=== PATIENT | male | born 1955 | race Caucasian/White ===

== ENCOUNTER 2016-05-26 22:06 | Emergency (ER) | payer SELFPAY ==
[2016-05-26] MEDS ORDERED: NORMAL SALINE 1000 ML 1,000 ML IV ONE (22:11)
[2016-05-26 22:49] LABS: ABSOLUTE BASOPHILS # (AUTO) 0.1 10^3/uL (0.0-0.2); ABSOLUTE LYMPHOCYTES (AUTO) 1.1 10^3/uL (0.5-4.7); ABSOLUTE MONOCYTES (AUTO) 1.3 10^3/uL (0.1-1.4); ABSOLUTE NEUT (AUTO) 9.3 10^3/uL (1.7-8.2); BASOPHILS % (AUTO) 0.5 % (0-2); EOSINOPHILS % (AUTO) 0.2 % (0-6); HEMATOCRIT 43.1 % (37.9-51.0); HEMOGLOBIN 14.4 g/dL (13.5-17.0); HGB HCT DIFFERENCE 0.1; LYMPHOCYTES % (AUTO) 9.1 % (13-45); MEAN CORPUSCULAR HEMOGLOBIN 29.8 pg (27.0-33.4); MEAN CORPUSCULAR HGB CONC 33.3 g/dL (32.0-36.0); MEAN CORPUSCULAR VOLUME 89 fl (80-97); MONOCYTES % (AUTO) 10.8 % (3-13); RED BLOOD COUNT 4.82 10^6/uL (4.35-5.55); RED CELL DISTRIBUTION WIDTH 13.6 % (11.5-14.0); SEGMENTED NEUTROPHILS % (AUTO) 79.4 % (42-78); WHITE BLOOD COUNT 11.7 10^3/uL (4.0-10.5)
[2016-05-26 22:56] LABS: PROTHROMBIN TIME 15.9 SEC (11.4-15.4)
[2016-05-26 23:05] LABS: ALANINE AMINOTRANSFERASE 43 U/L (21-72); ALBUMIN 3.4 g/dL (3.5-5.0); ALKALINE PHOSPHATASE 62 U/L (38-126); ANION GAP 12 (5-19); ASPARTATE AMINO TRANSFERASE 28 U/L (17-59); BILIRUBIN,TOTAL 0.9 mg/dL (0.2-1.3); BLOOD UREA NITROGEN 18 mg/dL (7-20); CALCIUM 8.7 mg/dL (8.4-10.2); CARBON DIOXIDE 20 mmol/L (22-30); CHLORIDE 108 mmol/L (98-107); CREATININE RESULT 1.05 mg/dL (0.52-1.25); GLUCOSE 140 mg/dL (75-110); POTASSIUM 3.8 mmol/L (3.6-5.0); SODIUM 140.1 mmol/L (137-145); TOTAL PROTEIN 6.7 g/dL (6.3-8.2)
[2016-05-26] MEDS ORDERED: AZITHROMYCIN 250 MG TABLET PO ONE (23:35)
[2016-05-26] MEDS ORDERED: CEFTRIAXONE 1 GM/D5W RTU 50 ML IV ONE (23:35)
--- NOTE | 2016-05-27 00:24 | ER Document Report ---
ED General - General Stated Complaint: SHORTNESS OF BREATH Notes: Patient is a 60-year-old male without past medical history who presents with 3 days of cough, fever, and shortness of breath. Denies a history of similar symptoms in the past. States his symptoms are unchanged by exertion. Nothing improves or worsens his cough or shortness of breath. He has not seen a primary care physician regarding today's concerns. Denies a history of smoking , asthma or COPD. Denies any vomiting, diarrhea, headache, neck pain, altered mental status. He has been trying to treat his fever at home with Tylenol. He did not receive an influenza vaccination this year. - HPI Onset: Other - 2 days ago Onset/Duration: Gradual Quality of pain: No pain Severity: None Pain Level: Denies Associated symptoms: Shortness of breath Exacerbated by: Denies Relieved by: Denies Similar symptoms previously: No Recently seen / treated by doctor: No - Related Data Allergies/Adverse Reactions: No Known Allergies Allergy (Verified 08/30/12 16:14) Past Medical History - General Information source: Patient - Social History Smoking Status: Never Smoker Frequency of alcohol use: None Drug Abuse: None Lives with: Spouse/Significant other Family History: Reviewed & Not Pertinent - Immunizations Hx Diphtheria, Pertussis, Tetanus Vaccination: Yes Review of Systems - Review of Systems Notes: Constitutional: Positive for fever. HENT: Negative for sore throat. Eyes: Negative for visual changes. Cardiovascular: Negative for chest pain. Respiratory: Positive for shortness of breath, and cough Gastrointestinal: Negative for abdominal pain, vomiting or diarrhea. Genitourinary: Negative for dysuria. Musculoskeletal: Negative for back pain. Skin: Negative for rash. Neurological: Negative for headaches, weakness or numbness. 10 point ROS negative except as marked above and in HPI. Physical Exam - Vital signs Interpretation: Tachycardic, Febrile Notes: PHYSICAL EXAMINATION: GENERAL: Mildly ill in appearance but in no acute distress. HEAD: Atraumatic, normocephalic. EYES: Pupils equal round and reactive to light, extraocular movements intact, sclera anicteric, conjunctiva are normal. ENT: nares patent, oropharynx clear without exudates. Moderately dry mucous membranes. NECK: Normal range of motion, supple without lymphadenopathy LUNGS: Mildly diminished breath sounds at the right low base. Air movement appropriately otherwise bilaterally. No wheezing. HEART: Regular tachycardia without murmurs ABDOMEN: Soft, nontender, normoactive bowel sounds. No guarding, no rebound. No masses appreciated. EXTREMITIES: Normal range of motion, no pitting or edema. No cyanosis. NEUROLOGICAL: No focal neurological deficits. Moves all extremities spontaneously and on command. PSYCH: Normal mood, normal affect. SKIN: Warm, Dry, normal turgor, no rashes or lesions noted. Course - Re-evaluation Re-evalutation: 05/27/16 04:41 Patient presents with signs and symptoms as well as vitals most consistent with acute pneumonia. Although this is not visualized on chest x-ray, based on vitals and assessment as well as negative influenza suspect that patient likely has a community-acquired pneumonia. He has been treated with ceftriaxone and azithromycin here in the emergency department. Remainder of his labs show mild leukocytosis but are otherwise unremarkable. Patient was mildly hypoxemic with an oxygen saturation of 93% which he was able to maintain with ambulation around the emergency department. I offered admission to the patient given his overall mildly ill appearance as well as his hypoxemia at rest but he declined stating he would return should he have any worsening symptoms. I do not suspect an alternative source to his fever given the absence of any abdominal complaints, dysuria, or evidence of a cellulitis. At this time will discharge with return precautions and follow-up recommendations. Verbal discharge instructions given a the bedside and opportunity for questions given. Medication warnings reviewed. Patient is in agreement with this plan and has verbalized understanding of return precautions and the need for primary care follow-up in the next 24-72 hours. - Laboratory Result Diagrams: 05/26/16 22:30 05/26/16 22:30 Laboratory results interpreted by me: 05/26/16 05/26/16 05/26/16 22:30 22:30 22:30 WBC 11.7 H Seg Neutrophils % 79.4 H Lymphocytes % 9.1 L Absolute Neutrophils 9.3 H PT 15.9 H Chloride 108 H Carbon Dioxide 20 L Glucose 140 H Albumin 3.4 L - Diagnostic Test Radiology reviewed: Image reviewed, Reports reviewed Radiology results interpreted by me: 05/27/16 04:42 Chest x-ray: No acute infiltrate - EKG Interpretation by Me Additional EKG results interpreted by me: 05/27/16 04:43 Sinus rhythm. Rate 70. No ST elevations or depressions. QTC 454. Discharge - Discharge Clinical Impression: Pneumonia Qualifiers: Pneumonia type: due to unspecified organism Laterality: unspecified laterality Lung location: unspecified part of lung Qualified Code(s): J18.9 - Pneumonia, unspecified organism Sepsis Qualifiers: Sepsis type: sepsis due to unspecified organism Qualified Code(s): A41.9 - Sepsis, unspecified organism Condition: Fair Disposition: HOME, SELF-CARE Additional Instructions: You were seen today for a fever and shortness of breath. Your oxygen levels were also mildly low. You have requested to go home today instead of coming into the hospital. Please take the antibiotics as directed. Follow-up with your primary doctor in the next 1-2 days. Return immediately to the ED if you have worsening shortness of breath, become confused, pass out, begin having worsening coughing, cough blood, or have any other symptoms that are concerning to you. Prescriptions: Azithromycin 250 mg PO DAILY #4 tablet
--- NOTE | 2016-05-27 08:01 | EKG REPORT ---
SEVERITY:- NORMAL ECG - SINUS RHYTHM ARTIFACTS VS FUSION BEATS, REC REPEAT EKG : Confirmed by: Camille Carlson 27-May-2016 08:00:28
[2016-05-27 09:46] VITALS: BP 141/85
== END 2016-05-27 01:00 | disposition home or self-care (01) ==
LOC: ER 22:06
DX: J18.9 Pneumonia, unspecified organism (principal); A41.9 Sepsis, unspecified organism; R06.02 Shortness of breath; R05 Cough; R50.9 Fever, unspecified; R09.02 Hypoxemia
CPT/HCPCS: 93005; 99285; 96361; 96374; 36415; 87040; 82962; 85025; 85610; 80053; 83605; 87804; 71010; 93010; J7030; J0696

== ENCOUNTER 2017-06-22 07:26 | Emergency (ER) | payer SELFPAY ==
[2017-06-22 07:36] VITALS: BP 127/77
[2017-06-22] MEDS ORDERED: ALBUTEROL SULFATE HFA (90 MCG/PUFF) 8 GM MDI (1 MDI/ER DISP) IH ONE (08:32)
--- NOTE | 2017-06-22 08:37 | ER Document Report ---
ED General - General Chief Complaint: Flu Symptoms Stated Complaint: FLU SYMPTOMS Time Seen by Provider: 06/22/17 08:09 TRAVEL OUTSIDE OF THE [place] IN LAST 30 DAYS: No - HPI Patient complains to provider of: Flulike symptoms Notes: Patient coming in for flulike symptoms feeling weak cough diffuse myalgias. Patient states did not receive flu shot this year. Patient denies any recent travel patient denies any fever states chills at home. Patient resting company upon my evaluation. - Related Data Allergies/Adverse Reactions: No Known Allergies Allergy (Verified 06/22/17 07:26) Past Medical History - Social History Smoking Status: Never Smoker Frequency of alcohol use: None Drug Abuse: None Family History: Reviewed & Not Pertinent Patient has suicidal ideation: No Patient has homicidal ideation: No Neurological Medical History: Reports: Hx Migraine - no meds Renal/ Medical History: Denies: Hx Peritoneal Dialysis - Immunizations Hx Diphtheria, Pertussis, Tetanus Vaccination: Yes Review of Systems - Review of Systems Constitutional: Other - Myalgias cough flulike symptoms EENT: No symptoms reported Cardiovascular: No symptoms reported Respiratory: No symptoms reported Gastrointestinal: No symptoms reported Genitourinary: No symptoms reported Male Genitourinary: No symptoms reported Musculoskeletal: No symptoms reported Skin: No symptoms reported Hematologic/Lymphatic: No symptoms reported Neurological/Psychological: No symptoms reported -: Yes All other systems reviewed and negative Physical Exam - Vital signs Vitals: Temp Pulse Resp BP Pulse Ox 98.6 F 97 16 127/77 H 95 06/22/17 07:35 06/22/17 07:35 06/22/17 07:35 06/22/17 07:35 06/22/17 07:35 Interpretation: Normal - General General appearance: Appears well, Alert - HEENT Head: Normocephalic, Atraumatic Eyes: Normal Pupils: PERRL - Respiratory Respiratory status: No respiratory distress Chest status: Nontender Breath sounds: Normal Chest palpation: Normal - Cardiovascular Rhythm: Regular Heart sounds: Normal auscultation Murmur: No - Abdominal Inspection: Normal Distension: No distension Bowel sounds: Normal Tenderness: Nontender Organomegaly: No organomegaly - Back Back: Normal, Nontender - Extremities General upper extremity: Normal inspection, Nontender, Normal color, Normal ROM , Normal temperature General lower extremity: Normal inspection, Nontender, Normal color, Normal ROM , Normal temperature, Normal weight bearing. No: Mohan's sign - Neurological Neuro grossly intact: Yes Cognition: Normal Orientation: AAOx4 [place] Coma Scale Eye Opening: Spontaneous [place] Coma Scale Verbal: Oriented Jesse Coma Scale Motor: Obeys Commands Jesse Coma Scale Total: 15 Speech: Normal Motor strength normal: LUE, RUE, LLE, RLE Sensory: Normal - Psychological Associated symptoms: Normal affect, Normal mood - Skin Skin Temperature: Warm Skin Moisture: Dry Skin Color: Normal Course - Re-evaluation Re-evalutation: 06/22/17 15:46 Patient presents with flulike symptoms however examination otherwise benign. Patient will be discharged home. - Vital Signs Vital signs: Temp Pulse Resp BP Pulse Ox 98.6 F 97 16 127/77 H 95 06/22/17 07:35 06/22/17 07:35 06/22/17 07:35 06/22/17 07:35 06/22/17 07:35 Discharge - Discharge Clinical Impression: Flu-like symptoms Disposition: HOME, SELF-CARE Instructions: Acetaminophen, Use of [id number]-[id number] Ibuprofen ([facility]), Influenza ([facility]) [id number] Additional Instructions: Your symptoms today are consistent with a viral-like illness or influenza. Please continue take Tylenol Motrin for pain and fever. Use inhaler that we gave you here in ER 2 puffs every 4 hours for any shortness of breath or wheezing. Unfortunately viruses will have the run of course there is no cure for them. Please make sure you are drinking plenty water to stay hydrated. Return to ER symptoms worsen or follow-up with your primary care provider. Forms: Return to Work
== END 2017-06-22 08:56 | disposition home or self-care (01) ==
LOC: ER 07:26
DX: R53.1 Weakness (principal); R05 Cough; M79.1 Myalgia
CPT/HCPCS: 99283; J3490

== ENCOUNTER 2019-02-13 12:13 | Emergency (ER) | payer SELFPAY ==
--- NOTE | 2019-02-13 12:38 | ER Document Report ---
ED Medical Screen (RME) - General Stated Complaint: URINARY PROBLEMS Time Seen by Provider: 02/13/19 12:28 Mode of Arrival: Ambulatory Information source: Patient Notes: Patient presents emergency department with reports that he is unable to void. He did attempt to give us a urine sample and very little urine output. He reports he still has to go. Reports he has had the symptoms for a while but last night they are intense he. He reports he is trying to void at least 20 times. Denies pain. Denies fever vomiting diarrhea. Denies past medical history. Reports he does not like to see doctors. I have greeted and performed a rapid initial assessment of this patient. A comprehensive ED assessment and evaluation of the patient, analysis of test results and completion of the medical decision making process will be conducted by additional ED providers. Dictation of this chart was performed using voice recognition software; therefore, there may be some unintended grammatical errors. TRAVEL OUTSIDE OF THE [place] IN LAST 30 DAYS: No - Related Data Allergies/Adverse Reactions: No Known Allergies Allergy (Verified 02/13/19 12:33) Past Medical History Neurological Medical History: Reports: Hx Migraine - no meds Renal/ Medical History: Denies: Hx Peritoneal Dialysis - Immunizations Hx Diphtheria, Pertussis, Tetanus Vaccination: Yes Physical Exam - Vital signs Vitals: Temp Pulse Resp BP Pulse Ox 97.5 F 75 18 148/76 H 97 02/13/19 12:17 02/13/19 12:17 02/13/19 12:17 02/13/19 12:17 02/13/19 12:17 Course - Vital Signs Vital signs: Temp Pulse Resp BP Pulse Ox 97.5 F 75 18 148/76 H 97 02/13/19 12:17 02/13/19 12:17 02/13/19 12:17 02/13/19 12:17 02/13/19 12:17
[2019-02-13 13:06] LABS: APPEARANCE,URINE CLEAR; BILIRUBIN,URINE NEGATIVE (NEGATIVE); COLOR,URINE YELLOW; GLUCOSE, URINE NEGATIVE (NEGATIVE); KETONES,URINE NEGATIVE (NEGATIVE); LEUKOCYTE ESTERASE,URINE NEGATIVE (NEGATIVE); NITRITE,URINE NEGATIVE (NEGATIVE); PROTEIN,URINE NEGATIVE (NEGATIVE); URINE SPECIFIC GRAVITY 1.016; UROBILINOGEN,URINE NEGATIVE mg/dL (<2.0)
[2019-02-13 13:31] LABS: ABSOLUTE BASOPHILS # (AUTO) 0.2 10^3/uL (0.0-0.2); ABSOLUTE EOSINOPHILS # (AUTO) 0.5 10^3/uL (0.0-0.6); ABSOLUTE LYMPHOCYTES (AUTO) 1.4 10^3/uL (0.5-4.7); ABSOLUTE MONOCYTES (AUTO) 0.7 10^3/uL (0.1-1.4); ABSOLUTE NEUT (AUTO) 7.1 10^3/uL (1.7-8.2); BASOPHILS % (AUTO) 1.6 % (0-2); EOSINOPHILS % (AUTO) 4.6 % (0-6); HEMATOCRIT 49.5 % (37.9-51.0); HEMOGLOBIN 16.8 g/dL (13.5-17.0); LYMPHOCYTES % (AUTO) 14.6 % (13-45); MEAN CORPUSCULAR HEMOGLOBIN 30.3 pg (27.0-33.4); MEAN CORPUSCULAR HGB CONC 33.9 g/dL (32.0-36.0); MEAN CORPUSCULAR VOLUME 90 fl (80-97); MONOCYTES % (AUTO) 7.4 % (3-13); PLATELET COUNT 267 10^3/uL (150-450); RED BLOOD COUNT 5.53 10^6/uL (4.35-5.55); RED CELL DISTRIBUTION WIDTH 14.2 % (11.5-14.0); SEGMENTED NEUTROPHILS % (AUTO) 71.8 % (42-78); TOTAL CELLS COUNTED % (AUTO) 100 %; WHITE BLOOD COUNT 9.8 10^3/uL (4.0-10.5)
[2019-02-13 13:41] LABS: ALBUMIN 4.6 g/dL (3.5-5.0); ALKALINE PHOSPHATASE 58 U/L (38-126); ANION GAP 8 (5-19); ASPARTATE AMINO TRANSFERASE 36 U/L (17-59); BILIRUBIN,DIRECT 0.2 mg/dL (0.0-0.4); BILIRUBIN,TOTAL 0.5 mg/dL (0.2-1.3); BLOOD UREA NITROGEN 21 mg/dL (7-20); CALCIUM 10.1 mg/dL (8.4-10.2); CARBON DIOXIDE 29 mmol/L (22-30); CHLORIDE 104 mmol/L (98-107); GLUCOSE 99 mg/dL (75-110); POTASSIUM 4.7 mmol/L (3.6-5.0); TOTAL PROTEIN 8.6 g/dL (6.3-8.2)
--- NOTE | 2019-02-13 17:23 | ER Document Report ---
ED General - General Chief Complaint: Urinary Retention Stated Complaint: URINARY PROBLEMS Time Seen by Provider: 02/13/19 12:28 Mode of Arrival: Ambulatory Information source: Patient TRAVEL OUTSIDE OF THE [place] IN LAST 30 DAYS: No - HPI Notes: Patient arrives complaining of suprapubic abdominal pain. He states that started yesterday. Got worse today. It was relieved when the catheter was replaced it was worse with any kind of movement. It was severe and constant sharp pain. It was in the lower pelvis and radiated to his inguinal areas bilaterally. He states he is been a level to urinate since last night. No previous history of similar problems. - Related Data Allergies/Adverse Reactions: No Known Allergies Allergy (Verified 02/13/19 12:33) Past Medical History - General Information source: Patient - Social History Smoking Status: Never Smoker Chew tobacco use (# tins/day): No Frequency of alcohol use: None Drug Abuse: None Family History: Reviewed & Not Pertinent Patient has suicidal ideation: No Patient has homicidal ideation: No Neurological Medical History: Reports: Hx Migraine - no meds Renal/ Medical History: Denies: Hx Peritoneal Dialysis - Immunizations Hx Diphtheria, Pertussis, Tetanus Vaccination: Yes Review of Systems - Review of Systems Constitutional: denies: Chills, Fever Cardiovascular: denies: Chest pain, Palpitations Respiratory: denies: Cough, Short of breath Gastrointestinal: Abdominal pain. denies: Vomiting -: Yes All other systems reviewed and negative Physical Exam - Vital signs Vitals: Temp Pulse Resp BP Pulse Ox 97.5 F 75 18 148/76 H 97 02/13/19 12:17 02/13/19 12:17 02/13/19 12:17 02/13/19 12:17 02/13/19 12:17 Interpretation: Normal - General General appearance: Appears well, Alert - HEENT Head: Normocephalic, Atraumatic Eyes: Normal Pupils: PERRL - Respiratory Respiratory status: No respiratory distress Chest status: Nontender Breath sounds: Normal Chest palpation: Normal - Cardiovascular Rhythm: Regular Heart sounds: Normal auscultation Murmur: No - Abdominal Inspection: Normal Distension: No distension Bowel sounds: Normal Tenderness: Nontender - Patient had Graham placed before I had examined him. His abdominal exam was unremarkable. Organomegaly: No organomegaly - Genitourinary Notes: Graham in place draining clear yellow urine. - Back Back: Normal, Nontender - Extremities General upper extremity: Normal inspection, Nontender, Normal color, Normal ROM, Normal temperature General lower extremity: Normal inspection, Nontender, Normal color, Normal ROM, Normal temperature, Normal weight bearing. No: Mohan's sign - Neurological Neuro grossly intact: Yes Cognition: Normal Orientation: AAOx4 Jesse Coma Scale Eye Opening: Spontaneous Jesse Coma Scale Verbal: Oriented Jesse Coma Scale Motor: Obeys Commands [place] Coma Scale Total: 15 Speech: Normal Motor strength normal: LUE, RUE, LLE, RLE Sensory: Normal - Psychological Associated symptoms: Normal affect, Normal mood - Skin Skin Temperature: Warm Skin Moisture: Dry Skin Color: Normal Course - Re-evaluation Re-evalutation: 02/13/19 17:21 Patient presents with urinary retention. It was relieved with a Graham catheter. Laboratories are unremarkable. He will be referred to follow-up with urology. A leg bag was given. - Vital Signs Vital signs: Temp Pulse Resp BP Pulse Ox 97.5 F 75 18 148/76 H 97 02/13/19 12:17 02/13/19 12:17 02/13/19 12:17 02/13/19 12:17 02/13/19 12:17 - Laboratory Result Diagrams: 02/13/19 13:06 02/13/19 13:06 Laboratory results interpreted by me: 02/13/19 02/13/19 13:06 13:06 RDW 14.2 H BUN 21 H Creatinine 1.27 H Est GFR (MDRD) Non-Af 57 L Total Protein 8.6 H Discharge - Discharge Clinical Impression: Acute urinary retention Condition: Stable Disposition: HOME, SELF-CARE Instructions: Urinary Retention ([facility]), Graham Catheter Care ([facility]) Additional Instructions: Please call Dr. Florez as soon as possible to arrange follow-up Referrals: CRISTINO FLOREZ MD [NO LOCAL MD] - Follow up in 3-5 days
[2019-02-13 18:10] VITALS: BP 140/74
== END 2019-02-13 18:11 | disposition home or self-care (01) ==
LOC: ER 12:13
DX: R33.9 Retention of urine, unspecified (principal); R10.2 Pelvic and perineal pain
CPT/HCPCS: 99283; 51702; 36415; 85025; 80053; 81001; C1758

== ENCOUNTER 2019-02-21 09:53 | Emergency (ER) | payer SELFPAY ==
[2019-02-21] MEDS ORDERED: ACETAMINOPHEN 325 MG TABLET PO ONE (10:04)
[2019-02-21] MEDS ORDERED: NORMAL SALINE 1000 ML 2,000 ML IV ONE (10:06)
--- NOTE | 2019-02-21 10:08 | ER Document Report ---
ED Medical Screen (RME) - General Chief Complaint: Pain All Over Stated Complaint: CHILLS Time Seen by Provider: 02/21/19 10:01 Mode of Arrival: Wheelchair Information source: Patient Notes: 63-year-old male presented to ED for complaint of shaking chills fevers temperature up to 102 now after he has had an Advil an hour ago. He states he is vomited multiple times yesterday up to 1:00 but then stopped after that. He does have a catheter in place that he received last week he is on Flomax. He states he was told by his urologist that he was supposed to take the catheter out tonight and see him tomorrow. Patient is alert oriented respirations regular and unlabored. He states he does feel very tired and weak due to the fever and chills. I have greeted and performed a rapid initial assessment of this patient. A comprehensive ED assessment and evaluation of the patient, analysis of test results and completion of medical decision making process will be conducted by an additional ED providers. TRAVEL OUTSIDE OF THE [place] IN LAST 30 DAYS: No - Related Data Allergies/Adverse Reactions: No Known Allergies Allergy (Verified 02/21/19 09:58) Past Medical History Neurological Medical History: Reports: Hx Migraine - no meds Renal/ Medical History: Denies: Hx Peritoneal Dialysis - Immunizations Hx Diphtheria, Pertussis, Tetanus Vaccination: Yes Physical Exam - Vital signs Vitals: Temp Pulse Resp BP Pulse Ox 102.0 F H 79 18 141/100 H 96 02/21/19 09:59 02/21/19 09:59 02/21/19 09:59 02/21/19 09:59 02/21/19 09:59 Course - Vital Signs Vital signs: Temp Pulse Resp BP Pulse Ox 102.0 F H 79 18 132/64 H 96 02/21/19 09:59 02/21/19 09:59 02/21/19 09:59 02/21/19 10:00 02/21/19 09:59
--- NOTE | 2019-02-21 10:23 | ER Document Report ---
ED General - General Chief Complaint: Flu Symptoms Stated Complaint: CHILLS Time Seen by Provider: 02/21/19 10:01 Mode of Arrival: Wheelchair TRAVEL OUTSIDE OF THE [place] IN LAST 30 DAYS: No - HPI Notes: This is a 63-year-old gentleman who presents today with a complaint of flulike symptoms. Patient states that shortly after eating ham yesterday, he had significant vomiting and some abdominal cramping. That has since resolved. Today, he describes generalized body aches. He denies diarrhea. Has a slight nonproductive cough. He denies any abdominal pain today. He denies any flank pain. Patient has an indwelling Graham catheter and is due to follow-up with urology tomorrow. He describes his symptoms as moderate. There are no obvious aggravating or relieving factors. - Related Data Allergies/Adverse Reactions: No Known Allergies Allergy (Verified 02/21/19 09:58) Past Medical History - General Information source: Patient - Social History Smoking Status: Never Smoker Chew tobacco use (# tins/day): No Frequency of alcohol use: None Drug Abuse: None Family History: Reviewed & Not Pertinent Patient has suicidal ideation: No Patient has homicidal ideation: No Neurological Medical History: Reports: Hx Migraine - no meds Renal/ Medical History: Denies: Hx Peritoneal Dialysis - Immunizations Hx Diphtheria, Pertussis, Tetanus Vaccination: Yes Review of Systems - Review of Systems Constitutional: Fever. denies: Malaise, Weakness Gastrointestinal: denies: Abdominal pain, Diarrhea, Vomiting - Vomited yesterday but now that is resolved. Genitourinary: denies: Burning, Dysuria, Flank pain Musculoskeletal: Muscle pain Neurological/Psychological: denies: Headaches -: Yes All other systems reviewed and negative Physical Exam - Vital signs Vitals: Temp Pulse Resp BP Pulse Ox 102.0 F H 79 18 141/100 H 96 02/21/19 09:59 02/21/19 09:59 02/21/19 09:59 02/21/19 09:59 02/21/19 09:59 - General General appearance: Appears well, Alert - Respiratory Respiratory status: No respiratory distress Chest status: Nontender Breath sounds: Normal Chest palpation: Normal - Cardiovascular Rhythm: Regular Heart sounds: Normal auscultation Murmur: No - Abdominal Inspection: Normal Distension: No distension Bowel sounds: Normal Tenderness: Nontender Organomegaly: No organomegaly - Back Back: Normal, Nontender - Extremities General upper extremity: Normal inspection, Nontender, Normal color, Normal ROM, Normal temperature General lower extremity: Normal inspection, Nontender, Normal color, Normal ROM, Normal temperature, Normal weight bearing. No: Mohan's sign - Neurological Neuro grossly intact: Yes Cognition: Normal Orientation: AAOx4 Jesse Coma Scale Eye Opening: Spontaneous [place] Coma Scale Verbal: Oriented [place] Coma Scale Motor: Obeys Commands Jesse Coma Scale Total: 15 Speech: Normal Motor strength normal: LUE, RUE, LLE, RLE Sensory: Normal - Psychological Associated symptoms: Normal affect, Normal mood - Skin Skin Temperature: Warm Skin Moisture: Dry Skin Color: Normal Course - Re-evaluation Re-evalutation: 02/21/19 10:22 Differential diagnosis includes food poisoning versus viral syndrome such as influenza versus bronchitis versus UTI. Doubt septicemia. Will check a lactate. Will hydrate patient. Check basic labs. 02/21/19 13:58 I was planning to change the Graham catheter given infection. Patient wanted removed. I discussed the patient's care with Dr. Curtis Llanes urology. He has an appointment with Dr. Llanes tomorrow. Dr. Llanes recommends that we change the catheter and put a new one in. I have discussed this with the patient. Patient understands the reason given his infection. 02/21/19 15:13 Patient reevaluated. Patient is doing well. Hemodynamically stable. Stable for discharge. Follow-up discussed. - Vital Signs Vital signs: Temp Pulse Resp BP Pulse Ox 100.3 F 79 19 107/65 95 02/21/19 12:30 02/21/19 09:59 02/21/19 13:01 02/21/19 13:01 02/21/19 13:01 - Laboratory Result Diagrams: 02/21/19 10:25 02/21/19 10:25 Laboratory results interpreted by me: 02/21/19 02/21/19 02/21/19 10:25 10:25 10:25 WBC 12.4 H RDW 14.1 H Lymph % (Auto) 6.3 L Absolute Neuts (auto) 10.2 H Seg Neutrophils % 82.5 H Sodium 136.0 L BUN 21 H Creatinine 1.33 H Est GFR (MDRD) Non-Af 54 L Total Bilirubin 1.4 H Urine Protein 100 H Urine Ketones 20 H Urine Blood LARGE H Urine Nitrite POSITIVE H Urine Urobilinogen 2.0 H Ur Leukocyte Esterase LARGE H Discharge - Discharge Clinical Impression: Acute UTI Fever Qualifiers: Fever type: unspecified Qualified Code(s): R50.9 - Fever, unspecified Condition: Stable Disposition: HOME, SELF-CARE Instructions: Urinary Tract Infection ([facility]) Additional Instructions: Keep the Graham catheter as discussed. Prescriptions: Ciprofloxacin HCl [Cipro 500 mg Tablet] 500 mg PO BID #20 tablet Referrals: MIMI LLANES MD [ACTIVE STAFF] - Follow up tomorrow (Follow-up tomorrow as scheduled.)
[2019-02-21 10:45] LABS: ABSOLUTE BASOPHILS # (AUTO) 0.1 10^3/uL (0.0-0.2); ABSOLUTE EOSINOPHILS # (AUTO) 0.1 10^3/uL (0.0-0.6); ABSOLUTE LYMPHOCYTES (AUTO) 0.8 10^3/uL (0.5-4.7); ABSOLUTE MONOCYTES (AUTO) 1.2 10^3/uL (0.1-1.4); ABSOLUTE NEUT (AUTO) 10.2 10^3/uL (1.7-8.2); BASOPHILS % (AUTO) 0.6 % (0-2); EOSINOPHILS % (AUTO) 0.7 % (0-6); HEMATOCRIT 44.1 % (37.9-51.0); HEMOGLOBIN 14.8 g/dL (13.5-17.0); LYMPHOCYTES % (AUTO) 6.3 % (13-45); MEAN CORPUSCULAR HGB CONC 33.6 g/dL (32.0-36.0); MEAN CORPUSCULAR VOLUME 89 fl (80-97); MONOCYTES % (AUTO) 9.9 % (3-13); PLATELET COUNT 184 10^3/uL (150-450); RED BLOOD COUNT 4.94 10^6/uL (4.35-5.55); RED CELL DISTRIBUTION WIDTH 14.1 % (11.5-14.0); SEGMENTED NEUTROPHILS % (AUTO) 82.5 % (42-78); TOTAL CELLS COUNTED % (AUTO) 100 %; WHITE BLOOD COUNT 12.4 10^3/uL (4.0-10.5)
[2019-02-21 10:50] LABS: VENOUS BLOOD BASE EXCESS 3.6 mmol/L; VENOUS BLOOD HCO3 29.2 mmol/L (20-32); VENOUS BLOOD PCO2 47.6 mmHg (35-63); VENOUS BLOOD PH 7.41 (7.30-7.42)
[2019-02-21 10:52] LABS: APPEARANCE,URINE SLIGHTLY-CLOUDY; BILIRUBIN,URINE NEGATIVE (NEGATIVE); COLOR,URINE AMBER; GLUCOSE, URINE NEGATIVE (NEGATIVE); KETONES,URINE 20 mg/dL (NEGATIVE); LEUKOCYTE ESTERASE,URINE LARGE (NEGATIVE); NITRITE,URINE POSITIVE (NEGATIVE); PROTEIN,URINE 100 mg/dL (NEGATIVE); URINE SPECIFIC GRAVITY 1.024
[2019-02-21 11:12] LABS: ALBUMIN 3.9 g/dL (3.5-5.0); ALKALINE PHOSPHATASE 62 U/L (38-126); ANION GAP 8 (5-19); ASPARTATE AMINO TRANSFERASE 28 U/L (17-59); BILIRUBIN,DIRECT 0.3 mg/dL (0.0-0.4); BILIRUBIN,TOTAL 1.4 mg/dL (0.2-1.3); BLOOD UREA NITROGEN 21 mg/dL (7-20); CALCIUM 9.3 mg/dL (8.4-10.2); CARBON DIOXIDE 28 mmol/L (22-30); CHLORIDE 100 mmol/L (98-107); GLUCOSE 96 mg/dL (75-110); POTASSIUM 4.3 mmol/L (3.6-5.0); TOTAL PROTEIN 7.5 g/dL (6.3-8.2)
[2019-02-21 11:16] LABS: A TYPE INFLUENZA AG NEGATIVE (NEGATIVE); B INFLUENZA AG NEGATIVE (NEGATIVE)
--- NOTE | 2019-02-21 11:58 | RADIOLOGY REPORT (SQ) ---
EXAM DESCRIPTION: CHEST 2 VIEWS COMPLETED DATE/TIME: 02/21/2019 11:47 am REASON FOR STUDY: fever COMPARISON: 05/26/2016 EXAM PARAMETERS: NUMBER OF VIEWS: two views TECHNIQUE: Digital Frontal and Lateral radiographic views of the chest acquired. RADIATION DOSE: NA LIMITATIONS: none FINDINGS: LUNGS AND PLEURA: No opacities, masses or pneumothorax. No pleural effusion. MEDIASTINUM AND HILAR STRUCTURES: No masses or contour abnormalities. HEART AND VASCULAR STRUCTURES: Heart normal size. No evidence for failure. BONES: No acute findings. HARDWARE: None in the chest. OTHER: No other significant finding. IMPRESSION: NO ACUTE RADIOGRAPHIC FINDING IN THE CHEST. TECHNICAL DOCUMENTATION: JOB ID: [id number] [employer]- All Rights Reserved Reading location - IP/workstation name: [email or web address]
[2019-02-21] MEDS ORDERED: CEFTRIAXONE INJ 1000 MG VIAL IV ONE (12:15)
[2019-02-21 15:28] VITALS: BP 134/68
--- NOTE | 2019-02-21 19:58 | EKG REPORT ---
SEVERITY:- BORDERLINE ECG - BORDERLINE T WAVE ABNORMALITIES SINUS RHYTHM : Confirmed by: Giovana Royal MD 21-Feb-2019 19:57:09
== END 2019-02-21 15:28 | disposition home or self-care (01) ==
LOC: ER 09:53
DX: N39.0 Urinary tract infection, site not specified (principal); Z46.6 Encounter for fitting and adjustment of urinary device; R50.9 Fever, unspecified; R05 Cough; M79.10 Myalgia, unspecified site
CPT/HCPCS: 93005; 99284; 96361; 96365; 36415; 87040; 87086; 85025; 87077; 87088; 80053; 81001; 87186; 82803; 83605; 87804; 71046; 93010; C1758; J0696; J7030

== ENCOUNTER 2019-02-24 05:53 | Emergency (ER) | payer SELFPAY ==
[2019-02-24 05:58] VITALS: BP 140/76
[2019-02-24 06:52] LABS: ABSOLUTE EOSINOPHILS # (AUTO) 0.1 10^3/uL (0.0-0.6); ABSOLUTE LYMPHOCYTES (AUTO) 0.6 10^3/uL (0.5-4.7); ABSOLUTE MONOCYTES (AUTO) 0.9 10^3/uL (0.1-1.4); ABSOLUTE NEUT (AUTO) 3.2 10^3/uL (1.7-8.2); BASOPHILS % (AUTO) 0.8 % (0-2); EOSINOPHILS % (AUTO) 2.4 % (0-6); HEMATOCRIT 41.8 % (37.9-51.0); HEMOGLOBIN 13.9 g/dL (13.5-17.0); LYMPHOCYTES % (AUTO) 12.1 % (13-45); MEAN CORPUSCULAR HEMOGLOBIN 29.8 pg (27.0-33.4); MEAN CORPUSCULAR HGB CONC 33.3 g/dL (32.0-36.0); MEAN CORPUSCULAR VOLUME 90 fl (80-97); MONOCYTES % (AUTO) 18.2 % (3-13); PLATELET COUNT 202 10^3/uL (150-450); RED BLOOD COUNT 4.67 10^6/uL (4.35-5.55); RED CELL DISTRIBUTION WIDTH 13.7 % (11.5-14.0); SEGMENTED NEUTROPHILS % (AUTO) 66.5 % (42-78); TOTAL CELLS COUNTED % (AUTO) 100 %; WHITE BLOOD COUNT 4.8 10^3/uL (4.0-10.5)
--- NOTE | 2019-02-24 07:14 | ER Document Report ---
Entered by CIARA KEENE SCRIBE 02/24/19 0631 Acting as scribe for:BINTA TESFAYE MD ED General - General Chief Complaint: Abnormal Lab Results Stated Complaint: ABNORMAL LABS Time Seen by Provider: 02/24/19 06:05 Mode of Arrival: Ambulatory Information source: Patient Notes: Patient is a 63-year-old male who presents to the emergency department today after being called and asked to return because of positive blood cultures. Patient was seen on 02/18 for acute urinary retention, had a Dunn catheter placed which drained out around 1L. Patient was seen again on 02/21 after beginning to feel ill with chills and was found to have a urinary tract infection, discharged home on Cipro. Urine cultures grew out Klebsiella and E. coli, both sensitive to the Cipro. One of the two blood cultures was positive growing out gram-negative rods, ID is not back yet however. Patient still has the dunn catheter in place and was instructed by his urologist to take it out on the evening of 02/26 prior to his follow-up appointment with him on 02/27. Patient states that he feels much better than he did on 02/21 stating that he essentially feels back to normal and is asymptomatic. TRAVEL OUTSIDE OF THE [place] IN LAST 30 DAYS: No - Related Data Allergies/Adverse Reactions: No Known Allergies Allergy (Verified 02/21/19 09:58) Past Medical History - General Information source: Patient - Social History Smoking Status: Never Smoker Cigarette use (# per day): No Chew tobacco use (# tins/day): No Frequency of alcohol use: None Drug Abuse: None Lives with: Family Family History: Reviewed & Not Pertinent Patient has suicidal ideation: No Patient has homicidal ideation: No Neurological Medical History: Reports: Hx Migraine - no meds Surgical Hx: Negative - Immunizations Hx Diphtheria, Pertussis, Tetanus Vaccination: Yes Review of Systems - Review of Systems Constitutional: No symptoms reported, Other - no complaints, here for f/u from positive blood culutures EENT: No symptoms reported Cardiovascular: No symptoms reported Respiratory: No symptoms reported Gastrointestinal: No symptoms reported Genitourinary: No symptoms reported Male Genitourinary: No symptoms reported Musculoskeletal: No symptoms reported Skin: No symptoms reported Hematologic/Lymphatic: No symptoms reported Neurological/Psychological: No symptoms reported -: Yes All other systems reviewed and negative Physical Exam - Vital signs Vitals: Temp Pulse Resp BP Pulse Ox 98.2 F 80 16 140/76 H 99 02/24/19 05:55 02/24/19 05:55 02/24/19 05:55 02/24/19 05:55 02/24/19 05:55 - Notes Notes: Physical Exam: General: Alert, appears well. HEENT: Normocephalic. Atraumatic. PERRL. Extraocular movements intact. Oropharynx clear. Neck: Supple. Non-tender. Respiratory: No respiratory distress. Clear and equal breath sounds bilaterally. Cardiovascular: Regular rate and rhythm. Abdominal: Normal Inspection. Non-tender. No distension. Normal Bowel Sounds. Back: No gross abnormalities. Extremities: Moves all four extremities. Upper extremities: Normal inspection. Normal ROM. Lower extremities: Normal inspection. No edema. Normal ROM. Neurological: Normal cognition. AAOx4. Normal speech. Psychological: Normal affect. Normal Mood. Skin: Warm. Dry. Normal color. Course - Vital Signs Vital signs: Temp Pulse Resp BP Pulse Ox 98.2 F 80 16 140/76 H 99 02/24/19 05:55 02/24/19 05:55 02/24/19 05:55 02/24/19 05:55 02/24/19 05:55 - Laboratory Result Diagrams: 02/24/19 06:42 02/24/19 06:42 Laboratory results interpreted by me: 02/24/19 02/24/19 02/24/19 06:42 06:42 06:50 Lymph % (Auto) 12.1 L [place] % (Auto) 18.2 H Albumin 3.2 L Urine Protein 100 H Urine Blood LARGE H Urine Urobilinogen 4.0 H Ur Leukocyte Esterase SMALL H Discharge - Discharge Clinical Impression: Positive blood culture Catheter-associated urinary tract infection Qualifiers: Indwelling urinary catheter type: indwelling urethral catheter Encounter type: subsequent encounter Qualified Code(s): T83.511D - Infection and inflammatory reaction due to indwelling urethral catheter, subsequent encounter; N39.0 - Urinary tract infection, site not specified Condition: Stable Disposition: HOME, SELF-CARE Additional Instructions: Continue taking the Cipro antibiotic. Drink plenty of fluids throughout the day in the evening. You need to drink a lot more fluids than you have been. Follow-up with your urologist this week as planned. RETURN TO THE EMERGENCY ROOM IF ANY NEW OR WORSENING SYMPTOMS. Scribe Attestation: 02/24/19 07:14 I personally performed the services described in the documentation, reviewed and edited the documentation which was dictated to the scribe in my presence, and it accurately records my words and actions. I personally performed the services described in the documentation, reviewed and edited the documentation which was dictated to the scribe in my presence, and it accurately records my words and actions.
[2019-02-24 07:15] LABS: ALBUMIN 3.2 g/dL (3.5-5.0); ALKALINE PHOSPHATASE 56 U/L (38-126); ANION GAP 8 (5-19); ASPARTATE AMINO TRANSFERASE 38 U/L (17-59); BILIRUBIN,DIRECT 0.3 mg/dL (0.0-0.4); BILIRUBIN,TOTAL 0.5 mg/dL (0.2-1.3); BLOOD UREA NITROGEN 17 mg/dL (7-20); CALCIUM 8.6 mg/dL (8.4-10.2); CARBON DIOXIDE 25 mmol/L (22-30); CHLORIDE 106 mmol/L (98-107); GLUCOSE 107 mg/dL (75-110); POTASSIUM 3.6 mmol/L (3.6-5.0); TOTAL PROTEIN 6.5 g/dL (6.3-8.2)
[2019-02-24 07:18] LABS: APPEARANCE,URINE SLIGHTLY-CLOUDY; BILIRUBIN,URINE NEGATIVE (NEGATIVE); COLOR,URINE YELLOW; GLUCOSE, URINE NEGATIVE (NEGATIVE); KETONES,URINE NEGATIVE (NEGATIVE); LEUKOCYTE ESTERASE,URINE SMALL (NEGATIVE); NITRITE,URINE NEGATIVE (NEGATIVE); PROTEIN,URINE 100 mg/dL (NEGATIVE); URINE SPECIFIC GRAVITY 1.027
== END 2019-02-24 07:43 | disposition home or self-care (01) ==
LOC: ER 05:53
DX: T83.511A Infection and inflammatory reaction due to indwelling urethral catheter, initial encounter (principal); N39.0 Urinary tract infection, site not specified; B96.1 Klebsiella pneumoniae [K. pneumoniae] as the cause of diseases classified elsewhere; B96.20 Unspecified Escherichia coli [E. coli] as the cause of diseases classified elsewhere; Y84.6 Urinary catheterization as the cause of abnormal reaction of the patient, or of later complication, without mention of misadventure at the time of the procedure
CPT/HCPCS: 36415; 80053; 81001; 85025; 87040; 99283